=== PATIENT | female | born 1955 | race Caucasian/White ===

== ENCOUNTER → 2019-07-27 14:52 | Outpatient (CLI) | payer OTHER, SELFPAY ==
[2019-07-27 09:19] VITALS: BMI 29.1
--- NOTE | 2019-07-27 10:25 | EMB_PTH ---
PATIENT: JAN RODRIGEZ LOC: [facility] U#:[id number] AGE/SX: 70/F ROOM: RE07/27/[address]: Dr. Mary Arzola MD : 1955 BED: DIS: SPEC #: [id number] RECD: 07/27/19 14:04 STATUS: LUCIO SHOSHANA #: [id number] VERENICE: 07/27/19 10:[address]: Mary Arzola DEPT: SURGICAL PATHOLOGY RECD BY: Sangita Flaherty ENTERED: 07/27/19 15:13 SP TYPE: ENDOM BX/C JAMIA DR: Out of Town Doctor Tissues: Endometrium, NOS Procedures: Surgery Specimen Level IV HEADER OPERATION: Endometrial biopsy PRE-OP DIAGNOSIS: Abnormal uterine bleeding TISSUE SUBMITTED: Endometrial lining MICROSCOPIC DIAGNOSIS Endometrium, biopsy: Scant strips of benign superficial endometrium and endocervix. AM:mila 07/30/19 MICROSCOPIC DESCRIPTION Slides are reviewed. GROSS DESCRIPTION Received is one container labeled with the patient's name and not further designated. The specimen consists of a scant amount of soft tissue. The specimen is totally submitted for cell block preparation. / SJ:mila 07/27/19 TC:5 CPT: 53164
== END ==
PROVIDERS: Referring Provider Obstetrics & Gynecology; Visit Provider Obstetrics & Gynecology
DX: N93.9 Abnormal uterine and vaginal bleeding, unspecified (principal)
CPT/HCPCS: 88305

== ENCOUNTER 2019-11-20 05:17 | Day surgery (SDC) | payer OTHER, SELFPAY ==
[2019-07-27 09:19] VITALS: BMI 29.1
[2019-11-08 13:46] VITALS: BMI 29.7
--- NOTE | 2019-11-14 10:22 | EKG12_ITS ---
Test Reason : PRE OP Blood Pressure : / mmHG Vent. Rate : 060 BPM Atrial Rate : 060 BPM P-R Int : 130 ms QRS Dur : 076 ms QT Int : 428 ms P-R-T Axes : 051 050 055 degrees QTc Int : 428 ms Normal sinus rhythm Possible Left atrial enlargement Borderline ECG Confirmed by BRITNEY WALLER ([id number]), business editor RADHA MANUEL ([id number]) on 11/15/2019 9:48:04 AM Referred By: Mary Arzola Confirmed By:BRITNEY WALLER
[2019-11-14 10:29] LABS: Hematocrit 39.4 % (37-47); Hemoglobin 13.4 g/dL (12.0-15.0); Mean Corpuscular Hgb 30.4 pg (27.0-32.0); Mean Corpuscular Volume 89.3 fL (81-99); Mean Platelet Vol. 9.6 fl (6.2-12.0); Platelet Count 230 K/mm3 (150-450); RBC Distribution Width CV 12.3 % (11.6-14.6); RBC Distribution Width SD 40.4 fl (35.1-43.9); Red Blood Count 4.41 M/mm3 (4.2-5.4); White Blood Count 5.1 K/mm3 (4.4-11.0)
[2019-11-14 10:56] LABS: Anion Gap 6 (5-15); BUN 21 mg/dL (7-18); BUN/Creat Ratio 26.3 RATIO (10-20); Calcium,Total 9.2 mg/dL (8.5-10.1); Chloride 107 mmol/L (98-107); EST Glomerular Filtration Rate 77 mL/min (>60); Est Glom Filt Rate - Afr Amer 93 mL/min (>60); Glucose 102 mg/dL (74-106); Magnesium 2.2 mg/dL (1.6-2.6); Potassium 4.3 mmol/L (3.5-5.1); Sodium Level 138 mmol/L (136-145)
[2019-11-20] VITALS (12 sets, daily range): BP systolic 85–111; BP diastolic 48–69; PULSE 51–88; RESP 16–18; TEMP 36–37; O2SAT 95–99; BMI 29.5
--- NOTE | 2019-11-20 | HYST_PTH ---
PATIENT: JAN RODRIGEZ LOC: [facility] [place] U#:[id number] AGE/SX: 64/F ROOM: RE11/20/[address]: Dr. Mary Arzola MD : 1955 BED: DIS: 11/21/2019 SPEC #: [id number] RECD: 11/20/19 12:07 STATUS: LUCIO REEyal #: [id number] VERENICE: 11/20/19 00:[address]: Mary Arzola DEPT: SURGICAL PATHOLOGY RECD BY: Lee Mustafa ENTERED: 11/20/19 12:07 SP TYPE: HYSTERECT OTHR DR: MD Dr. Corina Duval MD Tissues: Uterus, NOS Procedures: Surgery Specimen Level V HEADER OPERATION: ERAS, vaginal hysterectomy PRE-OP DIAGNOSIS: Postmenopausal bleeding N95.0 TISSUE SUBMITTED: Uterus MICROSCOPIC DIAGNOSIS Uterus, vaginal hysterectomy: Cervix - chronic inflammation. Endometrium - cystic atrophic endometrium. Endometrial polyps - benign endometrial polyps with cystic atrophic endometrium. Myometrium - leiomyomas (larger one measuring 1 cm in greatest dimension). - Adenomyosis. SJ:mila 11/21/19 COMMENT Please make reference to previous specimen ([id number]) endometrium, biopsy with diagnosis of scant strips of benign superficial endometrium and endocervix. MICROSCOPIC DESCRIPTION Slides are reviewed. GROSS DESCRIPTION Received in fixative is one container labeled with the patient's name and designated uterus. The specimen consists of a hysterectomy specimen consisting of a uterus with cervix weighing 62 gm and measuring 8 x 5 x 3 cm. The serosal surface is congested. The ectocervical mucosa is unremarkable. The external os is pin point in contour. The endocervical canal measures 2.5 cm in length and the endocervical mucosa is unremarkable. The triangular endometrial cavity measures 4 cm in length and up to 3 cm in width. Two sessile endometrial polyps are noted in the anterior uterine wall measuring 0.5 and 1 cm in greatest dimension. The myometrial wall underneath the polyp is not indurated. The rest of the endometrium measures 0.1 cm in thickness. Sections of the uterine wall reveal two nodular masses. The larger mass measures 1 cm in greatest dimension. Sections of these masses reveal shields whorled cut surfaces without areas of hemorrhage, necrosis or cystic degeneration. The uninvolved uterine wall measures up to 1.5 cm in thickness. High Tension Tester sections are submitted in eight cassettes as follows: 1 - anterior cervix, 2 - posterior cervix, 3 & 4 - anterior uterine wall, 5 & 6 - posterior uterine wall, 7??endometrial polyps with underlying uterine wall, entirely submitted, 8 - nodular masses. / DAMON:mila 11/20/19 TC:1 CPT: 73860
--- NOTE | 2019-11-20 00:50 | PCM.HPOB.BLA ---
- Problem List (1) Incomplete uterovaginal prolapse Status: Chronic Comment: plan TVHBCECIL jacques combo- will coordinate. (2) Postmenopausal bleeding Status: Chronic Comment: emb done 1 cm lining on US. consult from sawyer History and Physical Date of Admission: 11/20/19 Intake Vital Signs 11/08/19 Height 5 ft 5 in 11/08/19 Weight: 178 lb 8 oz 11/08/19 BMI 29.7 11/08/19 BP 138/76 H 11/08/19 BMI 29.1 Intake Visit Reasons: [facility] BSO Senior Media Planner Required: No Is patient in pain?: No Allergies No Known Allergies Allergy (Verified 11/08/19 13:46) Medications NK 07/27/19 [History Confirmed 11/08/19] Is last menstrual period known: No Post menopausal: Yes Patient : No : No [facility] Surgical History H/O tubal ligation (Acute) History of appendectomy (Acute) S/P breast lumpectomy (Acute) Social History (Updated 11/08/19 @ 14:20 by Mary Arzola MD) number of children: 4 current occupational status: employed current occupation: [employer] Smoking Status: Never smoker alcohol intake: current alcohol intake frequency: holidays/special occasions only substance use type: does not use seatbelt use: sometimes do you feel safe at home: Yes HPI [facility] BSO: Details: JAN RODRIGEZ is a 64 year old who presents for incomplete uterovaginal prolapse. she is having a combo case with dr jacques for prolapse. nl EMB. Pregancy History 5 Elective abortions 1 Hx Para 4 Spontaneous abortions Hx # Term Pregnancies 4 Ectopic pregnancies Hx # Pregnancies Multiple births # of living children 4 ROS Const Constitutional: Denies fatigue, fever(s), headache(s), increased appetite, poor appetite, weight gain or weight loss ENT ENT: Denies dizziness or dry mouth Cardio Card: Denies chest pain Resp Resp: Denies cough or dyspnea GI GI: Reports as per HPI; denies abdominal pain, constipation, nausea or vomiting : Reports as per HPI and vaginal odor; denies difficulty urinating, painful urination, pelvic pain, urinary frequency, urinary incontinence, urinary hesitancy, urinary urgency, vaginal discharge, vaginal dryness or vaginal itching Musc Musc: Denies joint pain, back pain or muscle weakness Skin Skin/Breast: Denies hair loss, change in hair, dry skin, breast lump, breast pain or breast skin changes Neuro Neuro: Denies dizziness Psych Psych: Denies anxiety or depression Endo Endo: Denies cold intolerance, excessive sweating, heat intolerance or increased thirst John/Lymph Hematologic/Lymphatic: Denies easy bleeding, Denies easy bruising, Denies enlarged lymph nodes Exam Const General: cooperative, healthy appearing, comfortable, no acute distress, well developed Nutritional Appearance: average body habitus Orientation: alert [facility] Head: normal to inspection, normocephalic Ears: hearing grossly normal bilaterally, external ears normal Nose: external nose normal, nares normal Face and sinus: normal facial exam Neck Neck: normal visual inspection, no lymphadenopathy, trachea midline Thyroid: thyroid normal Chest Chest palpation & inspection: normal inspection of the chest Resp Effort & Inspection: normal respiratory effort Auscultation: clear to auscultation bilaterally Cardio Rate: regular rate Rhythm: regular rhythm Heart Sounds: S1 normal, S2 normal GI Inspection: normal to inspection, non-distended Palpation: soft, no hepatosplenomegaly General: bladder normal to palpation External Female Exam: normal external appearance, normal appearance of the urethra Urethra: normal appearance of the urethra Speculum Exam - Vagina: normal appearance of the vagina, normal vaginal discharge Speculum Exam - Cervix: normal appearance of the cervix, nontender Bimanual Exam- Vagina & Uterus: bladder normal to palpation, No cervical tenderness Bimanual Exam- Adnexa, other: normal adnexae, adnexae mobile, no adnexal masses, rectocele, cystocele, vaginal apex descent Pelvic Support: cystocele, rectocele, vaginal apex descent Musc Cervical Spine: other Other: gross motor intact no deficits, full bilateral strength Skin General: no rashes or lesions noted Neuro General: alert, awake, moves all extremities, no focal motor deficits Motor: muscle tone normal throughout Extrem General: normal to inspection, no pedal edema Psych Appearance: grossly normal Mental Status: mental status grossly normal Affect: normal affect Speech and Movement: speech and movement normal Assessment & Plan Problems 1. Postmenopausal bleeding N95.0 emb done 1 cm lining on US. consult from sawyre 2. Incomplete uterovaginal prolapse N81.2 plan TVHBSO sawyer combo- will coordinate. Plan Problem list updated and treatment plans were reviewed with the patient and relevant educational handouts given. See problem list details for specific plan information. After discussing the patient's diagnosis and treatment plan options, patient wishes to proceed with surgical management. I have discussed with the patient the risks, benefits, and alternatives of the procedure which include but are not limited to risks of anesthesia, bleeding, infection, possible damage to bowel, bladder, or surrounding vasculature which could lead to additional surgery to evaluate any complications. Patient agrees to procedure and wishes to proceed. ACOG/uptodate references given for additional information regarding procedure. Coding Level of Care Code No Charge Diagnoses Postmenopausal bleeding N95.0 Incomplete uterovaginal prolapse N81.2 UPDATE- I have seen the patient and performed any clinically relevant updates to the history and physical exam. Mary Arzola MD
[2019-11-20] MEDS: Lactated Ringers 1,000 ML 40 ML IV (06:07)
[2019-11-20] MEDS: dexAMETHasone 10 MG/ML Vial 8 MG IV (06:08)
[2019-11-20] MEDS: Enoxaparin 40 MG/0.4 ML Syringe SC (06:08)
[2019-11-20] MEDS: Celecoxib 200 MG Capsule 400 MG PO (06:10)
[2019-11-20 06:11] LABS: Bedside Glucose 71 mg/dL (70-110)
[2019-11-20] MEDS: Acetaminophen 500 MG Tablet 1000 MG PO ×3 (06:11→18:22)
[2019-11-20] MEDS: Gabapentin 600 MG Tablet PO (06:11)
[2019-11-20 06:57] LABS: Magnesium 2.2 mg/dL (1.6-2.6)
[2019-11-20] MEDS: Cefazolin 2 GM in 0.9% Normal Saline 100 ML IV (07:30)
--- NOTE | 2019-11-20 07:40 | OP.PCM_ITS ---
Problem List (1) Incomplete uterovaginal prolapse Status: Chronic Comment: plan TVHBSO sawyer combo- will coordinate. (2) Postmenopausal bleeding Status: Chronic Comment: emb done 1 cm lining on US. consult from sawyer Report of Operation Date of Procedure: 11/20/19 Pre-Operative Diagnosis: prolapse Post-Operative Diagnosis: same Surgery/Procedure Performed:: tvh Description of Surgical Findings:: nl uterus tubes ovaries automotive product engineer: Gregor Levin automotive product engineer: Corina Wong Type of Anesthesia:: General Special Medications: none Specimen's removed: uterus tubes Drains: olguin Estimated Blood Loss (mL): 100 Fluids Replaced: crystalloid Description of Procedure: Patient was taken to the operating room and was placed under general anesthesia was prepped and draped in normal sterile fashion in the dorsal lithotomy position. Preoperative antibiotics and SCDs and Olguin catheter was placed inside the bladder. Weighted speculum was placed in the vagina and the anterior and posterior lip of the cervix was grasped with 2 Tammy clamps and circumferent ially injected with dilute vasopressin. A circumferential incision was made with a scalpel and the posterior cul-de-sac was entered into sharply and a longneck speculum was placed. The anterior cul-de-sac was also dissected down and entered into sharply and the uterosacral ligaments were clamped cut and suture ligated bilaterally followed by the cardinal ligaments which were Clamped cut and suture ligated bilaterally with 0 Monocryl. The uterus serially descended and progressive bites were taken bilaterally up to the level of the utero-ovarian ligament bilaterally which was clamped transected and double ligated with 0 Monocryl suture and 0 Vicryl free tie. Bilateral fallopian tubes and ovaries were difficult to visualize but within normal limits. Excellent hemostasis was noted. Posterior peritoneum was reapproximated with 2-0 Vicryl and a modified Dalton stitch was placed through the posterior vaginal cuff and bilateral uterosacral ligaments across the posterior cul-de-sac skimming along to provide apical support to the vagina. The vagina was closed with [id number] 0 Vicryl pop offs including the posterior and anterior peritoneum in the reapproximation. Excellent hemostasis was noted. All instruments removed from the vagina clear urine was noted at the end of the procedure and patient was awoken and taken recovery in stable condition. Grafts/Implants Used: see urogyn op note - Complications none - Admit VTE Documentation VTE Present on Admission: No VTE Mechan Device Prophylaxis: SCD's Multi Select Codes - Urinary/Genital Urinary/Genital CPT Codes: 02929 TVH <250 gr uterus
[2019-11-20] MEDS: Lubricating Jelly 60 GM Tube 30 GM TOPICAL (08:10)
[2019-11-20] MEDS: Vasopressin 20 UNITS/ML Vial (08:51)
[2019-11-20] MEDS: Lactated Ringers 1,000 ML 70 ML IV ×2 (10:00→16:25)
[2019-11-20] MEDS: Estrogens,Conj. 1 Tube 1 DOSE (10:01)
--- NOTE | 2019-11-20 10:02 | DCINST_ITS ---
Discharge Diet: No Restrictions Discharge Activity: Return to Normal Activity, May Not Drive, May Shower May resume sexual activity in: 6-8 weeks Call your doctor if your incision/area has: Continuous Slow Oozing, Sudden Increased Bleeding, Increased Pain/ Swelling, Increased Redness, Foul Smelling Discharge Call your doctor if you observe: Fever of 101 or Higher, Inability to urinate, Inability to have a bowel movement, Using more than one pad per hour Allergies/Adverse Reactions: Allergies latex Allergy (Verified 11/20/19 05:57) Rash Medications to take at Discharge Estrogens, Conjugated [Premarin] 1 dose VAGINAL TUSA 11/13/19 Ibuprofen 200 mg PO PRN PRN 11/13/19 Ibuprofen [Motrin] 600 mg PO Q6H PRN PRN #30 tab 11/20/19 Oxycodone HCl/Acetaminophen [Percocet 5-325] 1 - 2 tablet PO Q6H PRN PRN 7 Days #15 tablet 11/20/19 The following prescriptions were given: Ibuprofen [Motrin] 600 mg PO Q6H PRN PRN #30 tab PRN Reason: Pain Transmission Status: Pending to [facility] Oxycodone HCl/Acetaminophen [Percocet 5-325] 1 - 2 tablet PO Q6H PRN PRN 7 Days #15 tablet PRN Reason: Pain Transmission Status: Sent to [facility] Orders to be completed after discharge: Type & Screen Time Frame: 11/13/19, Facility: [facility], Location: Laboratory 12 Lead EKG [CVS] Time Frame: 11/13/19, Facility: [facility], Location: Cardiovascular Services Basic Metabolic Profile (BMP) Time Frame: 11/13/19, Facility: [facility], Location: Laboratory CBC-Complete Blood Cnt No Diff Time Frame: 11/13/19, Facility: [facility], Location: Laboratory Primary Care Physician: PERCY ALVARADO [Other] Test Results: Test results from this visit will be discussed in further detail at your follow- up appointment, if applicable. Please Follow Up With: Mary Arzola MD - [phone]
--- NOTE | 2019-11-20 10:13 | OP.PCM_ITS ---
Problem List (1) Stress incontinence Status: Acute (2) Incomplete uterovaginal prolapse Status: Chronic Comment: plan TVSO sawyer combo- will coordinate. Report of Operation Date of Procedure: 11/20/19 Pre-Operative Diagnosis: Incomplete uterovaginal prolapse, stress urinary incontinence Post-Operative Diagnosis: Same Surgery/Procedure Performed:: Anterior and posterior repair, sacrospinous ligament fixation, mid urethral sling, cystoscopy Type of Anesthesia:: General Estimated Blood Loss (mL): 100cctotal Description of Procedure: The patient is a 64-year-old female with uterovaginal prolapse who presents for definitive repair in addition to treatment for her stress incontinence with a sling insertion. She was evaluated in the office with urodynamics and cystoscopy. Risks, benefits and alternatives were discussed and informed consent was obtained. Patient was taken to the operating room and placed on the operating room table. Anesthesia monitored head, neck, airway, vital signs, and IV access throughout the case. Once anesthesia was appropriately administered the patient was prepped and draped in usual sterile fashion. A latex free Degroot catheter was inserted to straight drain and the bladder was emptied. Dr. Arzola proceeded with hysterectomy and cuff closure. The case was then turned over to wa. At this point the longer length of the vagina was posterior. The decision was made to proceed with sacrospinous ligament fixation from the posterior aspect. The anterior vaginal wall was identified and injected submucosally with vasopressin for hydrostatic dissection and hemostatic control. A midline incision was made in vertical fashion approximately 2 cm in length. Sharp and blunt dissection was performed until the pubocervical fascia was identified bilaterally and brought together in a 2 layer interrupted suture closure. The vaginal mucosa was closed over the repair with running interlocking 2-0 Vicryl. The posterior vaginal wall was also injected submucosally with vasopressin. An incision was made at the perineal body and both sharp and blunt dissection was performed and the vaginal mucosa was dissected away from the rectovaginal fascia. On the patient's right side the ischial spine was palpable and cleared from surrounding tissues as was the sacrospinous ligament. The Capio device was then used with PDS suture to secure the apex of the vagina to the sacrospinous ligament. The suture was brought out through the apex just below the cuff line. The rectovaginal fascia was repaired using 2-0 Vicryl interrupted sutures. A perineoplasty was performed in usual fashion. The vaginal mucosa was then clos ed over the repair using 2-0 Vicryl in running interlocking fashion. a rectal examination revealed good positioning of the sutures for the repair. At this time the mid urethra was injected with vasopressin, a vertical midline incision was made and sharp and blunt dissection was performed on either side of the urethra with care being taken to avoid entry into the urethra or the vaginal mucosa. The Altis mid urethral sling was then placed using the trochars. It began to roll on the patient's right side and was sutured into position with the very edge of the mesh. It lay flat against the urethra without tension. The mucosa was closed in running interlocking fashion. The Degroot catheter was removed and a cystourethroscopy was performed. Bilateral ureteral jets were observed. There was no entry into the urinary bladder or urethra with any foreign object. The mucosa was found to be within normal limits. The Degroot catheter was replaced and the vagina was packed with Premarin cream and plain packing. The patient was awakened and taken to the recovery room in good condition. There were no complications during the procedure. Grafts/Implants Used: Altis urethral sling - Complications None - Admit VTE Documentation VTE Present on Admission: Yes VTE Mechan Device Prophylaxis: SCD's VTE Pharm Prophylaxis ordered?: Yes
[2019-11-20] MEDS: Ketorolac 15 MG/ML Vial IV ×2 (12:52→18:22)
[2019-11-20] MEDS: Docusate Sodium 100 MG Capsule PO (20:18)
[2019-11-21] MEDS: Ketorolac 15 MG/ML Vial IV ×3 (00:09→12:51)
[2019-11-21] MEDS: Acetaminophen 500 MG Tablet 1000 MG PO ×3 (00:09→12:54)
[2019-11-21 00:10] VITALS: BP 98/51; PULSE 68; RESP 16; TEMP 36.4; O2SAT 98
[2019-11-21 05:49] VITALS: BP 130/67; PULSE 61; RESP 18; TEMP 36.2; O2SAT 98
[2019-11-21 06:10] LABS: Hematocrit 33.2 % (37-47); Mean Corp Hgb Conc 33.1 g/dL (32-36); Mean Corpuscular Volume 90.5 fL (81-99); Mean Platelet Vol. 10.3 fl (6.2-12.0); Platelet Count 173 K/mm3 (150-450); RBC Distribution Width CV 12.7 % (11.6-14.6); RBC Distribution Width SD 41.9 fl (35.1-43.9); Red Blood Count 3.67 M/mm3 (4.2-5.4); White Blood Count 7.4 K/mm3 (4.4-11.0)
--- NOTE | 2019-11-21 07:49 | PCM.PN.OB ---
Patient Problems: Active and Suspected Problems (Last Reviewed 11/08/19 @ 13:46 by Jennifer Lopez) Stress incontinence (Acute) Subjective: States doing well, had restful night. Pain controlled. Denies chest, shortness of breath - Physical Exam Vitals/I&O's: Vital Signs Temp Pulse Resp BP Pulse Ox 97.1 F L 61 18 130/67 H 98 11/21/19 05:49 11/21/19 05:49 11/21/19 05:49 11/21/19 05:49 11/21/19 05:49 Oxygen Flow Rate (L/min) 6 Oxygen Delivery Method Room Air Weight: 177 lb 4.026 oz Body Mass Index (BMI) 29.5 Intake and Output for Last 24 Hours 11/19/19 11/20/19 11/21/19 23:59 23:59 23:59 Intake Total 2059.17 / 2058.17 991.67 / 991.67 Output Total 1050 / 1050 600 / 600 Balance 1009.17 / 1009.17 391.67 / 391.67 General: Alert, Oriented x3 Abdomen: Soft, Non-Distended Laboratory Results 11/21/19 05:38: WBC 7.4, RBC 3.67 L, Hgb 11.0 L, Hct 33.2 L, MCV 90.5, MCH 30.0, MCHC 33.1, RDW Std Deviation 41.9, RDW Coeff of Whitney 12.7, Plt Count 173, MPV 10.3 Current Medications Acetaminophen (Tylenol) 1,000 mg PO Q6 [facility] Last Admin: 11/21/19 06:13 Dose: 1,000 mg Documented by: Docusate Sodium (Colace) 100 mg PO BID [facility] Last Admin: 11/20/19 20:18 Dose: 100 mg Documented by: Enoxaparin Sodium (Lovenox) 40 mg SC DAILY [facility] Ketorolac Tromethamine (Toradol (Bkc)) 15 mg IV Q6 [facility] Stop: 11/21/19 18:01 Last Admin: 11/21/19 05:44 Dose: 15 mg Documented by: Magnesium Oxide (Mag-Ox 400) 400 mg PO DAILY PRN PRN PRN Reason: Constipation Nutritional Formula (Lactose Free) (Ensure Enlive) 120 ml PO TIDCM [facility] Ondansetron HCl (Zofran Odt) 4 mg PO Q6H PRN PRN PRN Reason: NAUSEA Oxycodone HCl (Oxyir) 5 - 10 mg PO Q4H PRN PRN PRN Reason: Pain Score 4-10/10 Sodium Chloride () 10 - 40 ml IV UD PRN PRN Reason: SALINE FLUSH Medical Necessity - Tobacco Use Smoking Status: Never smoker Assessment/Plan All Active Problems (Last Reviewed 11/08/19 @ 13:46 by Jennifer Lopez) Stress incontinence (Acute) TVH postop day #1 Routine care Reg diet Home after evaluation per Dr Wong.
[2019-11-21 08:10] VITALS: O2SAT 96
--- NOTE | 2019-11-21 08:48 | PCM.PN.GU ---
Physical Exam Subjective: Doing well this morning. Only complaint is mild nausea. Otherwise doing well. Still eating and taking PO. Little sore. - Physical Exam Vital Signs Temp 97.1 F L 11/21/19 05:49 Pulse 61 11/21/19 05:49 Resp 18 11/21/19 05:49 BP 130/67 H 11/21/19 05:49 Pulse Ox 96 11/21/19 08:10 Intake & Output 11/19/19 11/20/19 11/21/19 23:59 23:59 23:59 Intake Total 2059.17 / 2059.17 991.67 / 991.67 Output Total 1050 / 1050 600 / 600 Balance 1009.17 / 1009.17 391.67 / 391.67 Weight: 79.379 kg 80.4 kg Intake: Oral 500 / 500 Intake, IV Amount 1559.17 / 1559.17 991.67 / 991.67 Cefazolin 10 GM/50 ML In 0.9% 110.0 / 110.0 Normal Saline 100 ML @ 150 mls/ hr IV PREOP ONE Rx#:[id number] Lactated Ringers 1,000 ML @ 40 1000 / 1000 mls/hr IV .Q25H [facility] Rx#: [id number] Lactated Ringers 1,000 ML @ 70 449.17 / 449.17 mls/hr IV .[id number] [facility] Rx#: [id number] Lactated Ringers 1,000 ML @ 70 991.67 / 991.67 mls/hr IV .[id number] [facility] Rx#: [id number] Output: Urine 1050 / 1050 600 / 600 General: Alert, Oriented x3, Cooperative, No apparent distress HEENT: Atraumatic, Normocephalic Oral: Moist Mucosa Neck: Supple, Trachea Midline Lungs: Normal air movement Cardiovascular: Regular rate Abdomen: Soft, Non Tender Rectal: Exam deferred Extremities: No Calf Tenderness Skin: No rashes Neurological: Cranial nerves II-XII grossly intact Psych/Mental Status: Normal Affect Comment: olguin and vaginal packing removed. No issues. Laboratory Tests Past 24 Hrs 11/21/19 05:38 WBC 7.4 RBC 3.67 L Hgb 11.0 L Hct 33.2 L MCV 90.5 MCH 30.0 MCHC 33.1 RDW Std Deviation 41.9 RDW Coeff of Whitney 12.7 Plt Count 173 MPV 10.3 Medical Necessity - Tobacco Use Smoking Status: Never smoker Assessment/Plan All Active Problems (Last Reviewed 11/08/19 @ 13:46 by Jennifer Lopez) Stress incontinence (Acute) bladder scan PVR for the trial of void continue supportive group home later today
[2019-11-21 08:55] VITALS: PULSE 60
[2019-11-21] MEDS: Docusate Sodium 100 MG Capsule PO (08:58)
[2019-11-21] MEDS: Enoxaparin 40 MG/0.4 ML Syringe SC (08:58)
[2019-11-21 12:48] VITALS: BP 139/74; PULSE 58; RESP 16; TEMP 36.6; O2SAT 100
--- NOTE | 2019-11-21 13:03 | DCINST_ITS ---
Discharge Diet: No Restrictions Discharge Activity: May Not Drive, May Shower May resume sexual activity in: 6-8 weeks Lifting Restrictions: no lifting over 5 pounds Additional Activity Instructions:: no exercise, no strenuous activity, no intercourse, no vacuuming, no pushing or pulling, no lifting anything over 5 pounds including purse. nothing per vagina except vaginal estrogen cream Call your doctor if your incision/area has: Continuous Slow Oozing, Sudden Increased Bleeding, Increased Pain/ Swelling, Increased Redness, Foul Smelling Discharge Call your doctor if you observe: Fever of 101 or Higher, Inability to urinate, Inability to have a bowel movement, Using more than one pad per hour, Calf discomfort, Uncontrolled pain Allergies/Adverse Reactions: Allergies latex Allergy (Verified 11/20/19 05:57) Rash Medications to take at Discharge Estrogens, Conjugated [Premarin] 1 dose VAGINAL TUSA 11/13/19 Ibuprofen 200 mg PO PRN PRN 11/13/19 Ibuprofen [Motrin] 600 mg PO Q6H PRN PRN #30 tab 11/20/19 Oxycodone HCl/Acetaminophen [Percocet 5-325] 1 - 2 tab PO Q6H PRN PRN 7 Days #15 tab 11/20/19 The following prescriptions were given: Ibuprofen [Motrin] 600 mg PO Q6H PRN PRN #30 tab PRN Reason: Pain Transmission Status: Received by [facility] Oxycodone HCl/Acetaminophen [Percocet 5-325] 1 - 2 tab PO Q6H PRN PRN 7 Days #15 tab PRN Reason: Pain Transmission Status: Received by [facility] Orders to be completed after discharge: Type & Screen Time Frame: 11/13/19, Facility: [facility], Location: Laboratory 12 Lead EKG [[facility]] Time Frame: 11/13/19, Facility: [facility], Location: Cardiovascular Services Basic Metabolic Profile (BMP) Time Frame: 11/13/19, Facility: [facility], Location: Laboratory CBC-Complete Blood Cnt No Diff Time Frame: 11/13/19, Facility: [facility], Location: Laboratory Primary Care Physician: PERCY ALVARADO [Other] Test Results: Test results from this visit will be discussed in further detail at your follow- up appointment, if applicable. Proposed Discharge Date: 11/21/19
--- NOTE | 2019-11-21 13:58 | NURSING ---
PATIENT HAS LATEX ALLERGY. 16 SAMO[address] 5CC BALLOON SILICONE REGALADO CATHETER INSERTED WITHOUT DIFFICULTY. QUICK RETURN OF CLEAR, PALE YELLOW URINE NOTED. PATIENT TOLERATED WELL. NO DISTRESS NOTED.
[2019-11-21 14:43] VITALS: BP 113/61; PULSE 58; RESP 16; TEMP 36.6; O2SAT 100
== END 2019-11-21 15:05 | disposition home or self-care (01) ==
LOC: SDC 05:18 → AC 05:23 → MS3 11-21 09:38
PROVIDERS: Anesthesiology; Urology; Referring Provider Obstetrics & Gynecology; Visit Provider Obstetrics & Gynecology
PROC: (CPT 58260; principal; 2019-11-20 07:10)
PROC: (CPT 57260; 2019-11-20 07:10)
DX: N81.2 Incomplete uterovaginal prolapse (principal); N95.0 Postmenopausal bleeding; N84.0 Polyp of corpus uteri; D25.9 Leiomyoma of uterus, unspecified; N39.3 Stress incontinence (female) (male); Z79.899 Other long term (current) drug therapy; G25.81 Restless legs syndrome; Z86.2 Personal history of diseases of the blood and blood-forming organs and certain disorders involving the immune mechanism
CPT/HCPCS: 00940; 57260; 57288; 58260; 36415; 80048; 82962; 83735; 85027; 86850; 86900; 86901; 88307; 93005; 94762; 99251; J7050; J7120; G0463; J2405